=== PATIENT | female | born 1945 | race Hispanic/Latino ===

== ENCOUNTER → 2020-02-12 | Day surgery (SDC) | payer MEDICARE ==
[2020-02-09 10:54] LABS: BASOPHILS # (AUTO) 0.1 (0.0-0.1); BASOPHILS % 0.6 % (0.0-1.0); EOSINOPHILS # (AUTO) 0.3 (0.0-0.4); EOSINOPHILS % 3.6 % (0.0-6.0); HEMATOCRIT 35.2 % (34.2-44.1); HEMOGLOBIN 11.2 g/dL (12.0-16.0); LYMPHOCYTES # (AUTO) 3.7 (1.0-3.2); LYMPHOCYTES % 44.8 % (18.0-39.1); MEAN CORPUSCULAR HEMOGLOBIN 30.1 pg (28-32); MEAN CORPUSCULAR HGB CONC 31.8 g/dL (31-35); MEAN CORPUSCULAR VOLUME 94.6 fL (81-99); MONOCYTES # (AUTO) 0.8 (0.2-0.8); MONOCYTES % 9.1 % (4.4-11.3); NEUTROPHILS # (AUTO) 3.5 (2.1-6.9); NEUTROPHILS % 41.5 % (38.7-80.0); PLATELET COUNT 282 x10e3/uL (140-360); RED BLOOD COUNT 3.72 x10e6/uL (3.6-5.1); RED CELL DISTRIBUTION WIDTH 16.6 % (11.7-14.4)
--- NOTE | 2020-02-09 11:48 | Diagnostic Imaging Report ---
EXAMINATION: PA and lateral views of the chest. COMPARISON: None CLINICAL HISTORY: Preoperative study DISCUSSION: The lungs are well inflated. No focal airspace consolidation, pleural effusion, or pneumothorax. Tortuous thoracic aorta with otherwise normal cardiomediastinal contour and pulmonary vasculature. No acute osseous abnormalities. Cervical spine fusion hardware and upper abdominal surgical material partially visualized. IMPRESSION: No acute cardiopulmonary abnormalities. Signed by: Dr. Dawit Huang M.D. on 02/09/2020 11:45 AM
[~2020-02-12] MED LIST: ACETAMINOPHEN 1000 MG/100 ML IV ONE; ACETAMINOPHEN/CODEINE 300MG - 30MG TAB ONE; AMLODIPINE BESYL5 MG PO; ARTHROTEC EC 51 EACH PO; ASCORBIC ACID500 MG PO; BUPIVACAINE HCL 0.5% INJ 30 ML VIAL INJ ONE; CEFAZOLIN SOD 1 GM/NS 50ML 50 ML IV ONE; COLACE100 MG PO; CYMBALTA30 MG PO; DEXAMETHASONE SOD PHOS INJ 4 MG/ML VIAL ONE; FAMOTIDINE20 MG PO; FENTANYL CITRATE/PF 100MCG/2 ML INJ ONE; FEOSOL325 MG PO; LIDOCAINE HCL 2% LOCAL INJ 5 ML SDV VIAL INJ ONE; LOVENOX40 MG/0.4 SC; METOPROLOL TART25 MG PO; MIDAZOLAM HCL 2 MG/2 ML VIAL ONE; MIRAPEX1 MG PO; NORCO 7.5-3251 EACH PO; OMEPRAZOLE40 MG PO; ONDANSETRON HCL INJ 2MG/ML 2ML 2 MG/ML VIAL ONE; PROPOFOL IV EMULSION 10 MG/ML 20 ML VIAL ONE; SEVOFLURANE INHAL SOLN 250 ML PEN BTL ONE; Z.0.ASPIR 8181 MG PO; Z.0.CRESTOR10 MG PO; Z.0.LEVOTHYROXINE50 PO; Z.0.NEXIUM40 MG PO; Z.0.SPIRONOLACTONE50 PO; [UNRECOGNIZED DRUG - OTHER] PO
--- OUTSIDE RECORDS SUMMARY | 2020-02-12 05:11 | XMS REPORT | Summary of Care ---
Author Author Julianne Groves M.A. Organization Unknown Address Unknown Phone Unavailable Care Team Providers Care Furniture Repairer Name Role Phone KARAN LINTON M.D. Unavailable Unavailable Julianne Groves M.A. Unavailable Unavailable AMALIA MAC MD Unavailable Unavailable Unavailable Unavailable Functional Status Name Dates Details Functional status health issues are not documented Status: Name Dates Details Cognitive status health issues are not documented Status: Problems Name Dates Details Arthritis (716.90, M19.90) Status: Active Fibromyalgia (729.1, M79.7) Status: Active Gastritis (535.50, K29.70) Status: Active High blood pressure (401.9, I10) Status: Active Thyroid disease (246.9, E07.9) Status: Active Neck mass (784.2, R22.1) Status: Active Myositis (729.1, M60.9) Status: Active Medications Name Dates Details Calcium + D 600-200 MG-UNIT TABS Active Vitamin C TABS * Refills: 0 Active Vitamin D TABS * Refills: 0 Active Crestor TABS * Refills: 0 Active Gabapentin TABS * Refills: 0 Active DULoxetine HCl - 60 MG Oral Capsule Delayed Release Particles * Refills: 0 Active NexIUM 10 MG Oral Packet * Refills: 0 Active Amoxicillin-Pot Clavulanate 875-125 MG Oral Tablet TAKE 1 TABLET EVERY 12 HOURS WITH MEALS UNTIL GONE. * Quantity: 28 Refills: 0 KARAN LINTON M.D. * Start : 28-Feb-2018 Active Allergies and Adverse Reactions Name Dates Details codeine (Allergy) Status: Active Procedures Procedure Dates Details History of Hysterectomy Completed History of Hernia repair Completed History of Kidney surgery Completed History of Knee replacement Completed History of Nose surgery Completed History of Tonsillectomy Completed Immunization Name Dates Details Immunizations not documented Family History Name Dates Details Family history of Allergy (995.3, T78.40XA) Comments: Other Status: Active Social History Name Dates Details - Status: Name Dates Details Never smoker Vital Signs Date Test Result Details No Known Vitals to report Results Date Description Value Details Results not documented Plan of Care Name Dates Details Planned Observations Planned Goals not documented Instructions Name Dates Details Instructions not documented Encounters Appointment; KARAN LINTON M.D. Encounter Diagnosis: Problem not documented On: 28-Feb-2018 13:00 Appointment; KARAN LINTON M.D. Encounter Diagnosis: Problem not documented On: 08-Mar-2018 14:15 Appointment; KARAN LINTON M.D. Encounter Diagnosis: Problem not documented On: 11-Mar-2018 11:00
--- OUTSIDE RECORDS SUMMARY | 2020-02-12 05:11 | XMS REPORT ---
Author Author [facility] Address Unknown Phone Unavailable Care Team Providers Care Director Public Name Role Phone DAWIT ELLIOTT Unavailable Unavailable Problems This patient has no known problems. Allergies, Adverse Reactions, Alerts This patient has no known allergies or adverse reactions. Medications This patient has no known medications. Encounters Start Date/Time End Date/Time Encounter Type Admission Type Attending [facility] Care Department Encounter ID 2019-06-22 12:18:59 Outpatient [id number] Results Test Description Test Time Test Comments Text Results Atomic Results Result Comments CHEST 2 VIEWS 2020-02-09 11:43:00 [place] [id number] Patient Name: ELIE HAMPTON MR #: [id number] : 1945 Age/Sex: 74/F Req #: [id number] Adm Physician: Ordered by: DAWIT ELLIOTT MD Report #: [id number] Location: OR Room/Bed: Procedure: [id number] DX/CHEST 2 VIEWS Exam Date: 02/09/20 Exam Time: 1035 REPORT STATUS: Signed EXAMINATION: PA and lateral views of the chest. COMPARISON: None CLINICAL HISTORY: Preoperative study DISCUSSION: The lungs are well inflated. No focal airspace consolidation, pleural effusion, or pneumothorax. Tortuous thoracic aorta with otherwise normal cardiomediastinal contour and pulmonary vasculature. No acute osseous abnormalities. Cervical spine fusion hardware and upper abdominal surgical material partially visualized. IMPRESSION: No acute cardiopulmonary abnormalities. Signed by: Dr. Dawit Ponce M.D. on 02/09/2020 11:45 AM Dictated By: DAWIT PONCE MD [id number] Transcribed By: SUZI on 02/09/20 1145 COPY TO: DAWIT ELLIOTT MD XR Spine Cervical 4 + Flex/Ext 2018-06-02 17:56:58 Patient: ELIE HAMPTON Date/Time06/02/2018 17:06 CDTReason for ExamstenosisReportCervical spine 7 viewsHISTORY: StenosisLocation R 1619Findings:Straightening of the cervical lordosis. Grade 1 anterolisthesis of C3 over C4. Grade 1 retrolisthesis of C5 over C6.Severe narrowing of the intervertebral discs from C4 to C7, with mild posterior and mi ld to moderate anterior spondylosis mild narrowing of the C2-C3 and C3-4 discs.Moderate narrowing of the left C4-7 neural foramina secondary to uncovertebral spondylosis.1 mm anterolisthesis of C3 over C4 on extension becomes 5.9 mm on flexion.3.1 mm retrolisthesis of C5 over C6 on extension resolves with flexion.Soft tissues are unremarkable.IMPRESSION:1. Severe degenerative changes above, with disc space narrowing throughout the cervical spine, most prominent from C4 to C7.2. Spondylosis causes moderate narrowing of the left neural foramen from C4 to C7.3. Severe instability at C3-4. Note that f lexion occurs almost exclusively at this level. Final Dictated by: MD Brower Daniel RDictated DT/TM: 06/02/2018 5:51 pmSigned by: MD Brower Daniel RSigned (Electronic Signature): 06/02/2018 5:56 pm MRI Spine Cervical w/ + w/o Contrast 2018-06-02 17:21:58 Patient: ELIE HAMPTON Date/Time06/02/2018 16:31 CDTReason for ExamM48.02ReportMRI cervical spineLocation R 16INDICATION: Cervical stenosis.COMPARISON: 06/02/2018 4 views of the cervical spine.Technique: Long short axis fat or water weighted sequences were obtained pre and postcontrast. 13 mL the M IV.FINDINGS: Reversal of the cervical lordosis . Grade 2 anterolisthesis of C3 over C4.Vertebral bodies are normal height and signal. No fracture, subluxation or dislocation. Paraspinal soft tissues are unremarkable. Severe signal loss of the intervertebral discs with severe loss of height and C3-4, C4-5, C5-6 and C6-7. Mild anterior and posterior spondylosis from C4 to C7.Spinal cord is of normal signal and caliber.FINDINGS:C2-3: Unremarkable.C3-4: Disc pseudobulge indents the ventral spinal cord and causes moderate narrowing of the neural foramina.C4-5: Disc bulge of 3 mm indents the ventral spinal cord. Moderate severe narrowing of the neural foramina, greater on the leftC5-6: An asymmetrical posterior spondylotic bar is more prominent to the left and flattens the anterior spinal cord with posterior cord displacement. Maximum anteroposterior diameter of the bar is 3.5 mm. Moderate narrowing of the central canal. Moderate narrowing of the right neural foramen. Severe narrowing of the left neural foramen.6-7:3 mm disc bulge indents the ventral spinal cord. Severe narrowing of the left neural foramen. Moderate narrowing of the right neural foramen.Moderate facet hypertrophy throughout the cervical spine.No enhancing lesion is seen.IMPRESSION:1. Reversal of the cervical lordosis.2. Grade 2 anterolisthesis of C3 3 over C4 secondary to facet arthropathy.3. Prominent multilevel disc bulges and spondylosis, with cord compression and moderate and severe narrowing of the central canal as above. Final Dictated by: MD Brower Daniel RDictated DT/TM: 06/02/2018 5:13 pmSigned by: MD Brower Daniel RSigned (Electronic Signature): 06/02/2018 5:21 pm
[2020-02-12 08:55] VITALS: BP 138/83
--- NOTE | 2020-02-12 12:15 | Operative Report ---
DATE OF PROCEDURE: 02/12/2020 SURGEON: Dawit Liu MD TOP CARRIER: Rommel Little, certified PA. PREOPERATIVE DIAGNOSIS: Carpal tunnel syndrome, bilateral wrists. POSTOPERATIVE DIAGNOSIS: Carpal tunnel syndrome, bilateral wrists. PROCEDURE: Bilateral endoscopic carpal tunnel release. INDICATIONS: The patient is a 74-year-old lady, who has signs and symptoms consistent with carpal tunnel syndrome in both wrist. She has failed conservative management and would like to proceed with surgical release. The risks and benefits have been explained. She states she understands and wishes to proceed. PROCEDURE IN DETAIL: The patient was brought to the operating room and placed under general anesthetic. Both upper extremities were prepped and draped in a sterile manner. A preoperative time-out was performed. Initial attention was directed towards the right arm. The extremity was exsanguinated and a proximal tourniquet was inflated to 250 mmHg. An incision was made over the flexion crease of the right wrist. The palmaris longus was retracted to the radial side of the wound. The flexor retinaculum was elevated and incised with a pair of tenotomy scissors. An elevator was used to tease the tenosynovium off the undersurface of the transverse carpal ligament. Dilators were placed and the hook of the hamate was palpated. The MicroAire endoscope was placed into the carpal tunnel. The undersurface of the ligament was cleanly visualized without evidence of soft tissue interposition. The knife was deployed and the ligament was cut from distal to proximal. The proximal retinaculum was incised under direct visualization. The wound was then closed with two interrupted nylon stitches. A sterile bandage was applied and the tourniquet was deflated. The same procedure was then performed on the left upper extremity. The patient was extubated and transported to the recovery room in stable condition. There was no blood loss and all needle and sponge counts were correct. Dawit Liu MD DR/ADELE /[id number]
== END | disposition home or self-care (01) ==
LOC: OR 05:08
PROVIDERS: ATTEND Specialist
DX: G56.03 Carpal tunnel syndrome, bilateral upper limbs (principal); Z01.810 Encounter for preprocedural cardiovascular examination; Z01.812 Encounter for preprocedural laboratory examination; Z01.811 Encounter for preprocedural respiratory examination; E03.9 Hypothyroidism, unspecified; I10 Essential (primary) hypertension; E78.00 Pure hypercholesterolemia, unspecified; Z96.652 Presence of left artificial knee joint; K21.9 Gastro-esophageal reflux disease without esophagitis; Z90.49 Acquired absence of other specified parts of digestive tract; Z90.5 Acquired absence of kidney
CPT/HCPCS: 36415; 71046; 85025; 93005; J0690; J1100; J2001; J2250; J2405; J3010

== ENCOUNTER 2022-05-26 14:46 | Outpatient (RCR) | payer MEDICARE ==
[~2022-05-26 14:46] MED LIST changes: -ACETAMINOPHEN 1000 MG/100 ML IV ONE; -ACETAMINOPHEN/CODEINE 300MG - 30MG TAB ONE; -BUPIVACAINE HCL 0.5% INJ 30 ML VIAL INJ ONE; -CEFAZOLIN SOD 1 GM/NS 50ML 50 ML IV ONE; -DEXAMETHASONE SOD PHOS INJ 4 MG/ML VIAL ONE; -FENTANYL CITRATE/PF 100MCG/2 ML INJ ONE; -LIDOCAINE HCL 2% LOCAL INJ 5 ML SDV VIAL INJ ONE; -MIDAZOLAM HCL 2 MG/2 ML VIAL ONE; -ONDANSETRON HCL INJ 2MG/ML 2ML 2 MG/ML VIAL ONE; -PROPOFOL IV EMULSION 10 MG/ML 20 ML VIAL ONE; -SEVOFLURANE INHAL SOLN 250 ML PEN BTL ONE
== END 2022-05-28 ==
LOC: PT 14:46
PROVIDERS: ATTEND Podiatrist Foot & Ankle Surgery
DX: M72.2 Plantar fascial fibromatosis (principal)

== ENCOUNTER 2022-05-29 12:37 | Outpatient (RCR) | payer MEDICARE | END 2022-06-28 | LOC: PT 12:37 | PROVIDERS: ATTEND Podiatrist Foot & Ankle Surgery | DX: M72.2 Plantar fascial fibromatosis (principal) ==

== ENCOUNTER → 2024-06-19 | Day surgery (SDC) | payer MEDICARE ==
[2024-06-15 15:08] LABS: BASOPHILS # (AUTO) 0.1 (0.0-0.1); BASOPHILS % 0.6 % (0.0-1.0); EOSINOPHILS # (AUTO) 0.3 (0.0-0.4); EOSINOPHILS % 3.3 % (0.0-6.0); HEMATOCRIT 36.3 % (34.2-44.1); HEMOGLOBIN 11.5 g/dL (12.0-16.0); LYMPHOCYTES # (AUTO) 3.2 (1.0-3.2); MEAN CORPUSCULAR HEMOGLOBIN 31.3 pg (28-32); MEAN CORPUSCULAR HGB CONC 31.7 g/dL (31-35); MEAN CORPUSCULAR VOLUME 98.9 fL (81-99); MONOCYTES # (AUTO) 0.7 (0.2-0.8); MONOCYTES % 8.5 % (4.4-11.3); NEUTROPHILS # (AUTO) 4.4 (2.1-6.9); NEUTROPHILS % 50.4 % (38.7-80.0); PLATELET COUNT 293 x10e3/uL (140-360); RED BLOOD COUNT 3.67 x10e6/uL (3.6-5.1); RED CELL DISTRIBUTION WIDTH 15.7 % (11.7-14.4); WHITE BLOOD COUNT 8.73 x10e3/uL (4.8-10.8)
[2024-06-15 16:02] LABS: ANION GAP 17.1 mmol/L (8-16); CALCIUM 9.1 mg/dL (8.4-10.2); CREATININE, SERUM 1.26 mg/dL (0.57-1.11); POTASSIUM 4.1 mmol/L (3.5-5.1)
[~2024-06-19] MED LIST changes: +FAMOTIDINE 20 MG/2 ML VIAL IV ONE; +FENTANYL CITRATE/PF 100MCG/2 ML INJ ONE; +LIDOCAINE HCL 2% LOCAL INJ 5 ML SDV VIAL INJ ONE; +LORATADINE10 MG PO; +MEMANTINE HCL10 MG PO; +METFORMIN HCL500 MG PO; +ONDANSETRON HCL INJ 2MG/ML 2ML 2 MG/ML VIAL ONE; +PROPOFOL IV EMULSION 10 MG/ML 20 ML VIAL ONE
[2024-06-19] MEDS: LACTATED RINGER'S 1,000 ML ONE (06:14)
[2024-06-19] MEDS: HYDROMORPHONE 1MG/1ML INJ ONE (08:05)
[2024-06-19] MEDS: TRAMADOL HCL 50 MG TAB ONE (08:30)
[2024-06-19 08:50] VITALS: BP 160/80; PULSE 70; RESP 16; O2SAT 98
== END | disposition home or self-care (01) ==
LOC: OR 05:18
PROVIDERS: ATTEND Specialist
DX: G56.03 Carpal tunnel syndrome, bilateral upper limbs (principal); D64.9 Anemia, unspecified; E11.9 Type 2 diabetes mellitus without complications; I10 Essential (primary) hypertension; E78.5 Hyperlipidemia, unspecified; K44.9 Diaphragmatic hernia without obstruction or gangrene; K21.9 Gastro-esophageal reflux disease without esophagitis; E03.9 Hypothyroidism, unspecified; F32.A Depression, unspecified; Z88.6 Allergy status to analgesic agent; Z01.810 Encounter for preprocedural cardiovascular examination; Z01.812 Encounter for preprocedural laboratory examination; Z01.818 Encounter for other preprocedural examination; Z79.84 Long term (current) use of oral hypoglycemic drugs; Z79.899 Other long term (current) drug therapy
CPT/HCPCS: 29848; 36415; 71046; 80048; 85025; 93005; J0690; J1170; J2001; J2405; J2704; J3010; J7121